=== PATIENT | male | born 1990 ===

== ENCOUNTER 2023-11-17 21:01 | Emergency (ER) | payer OTHER ==
[~2023-11-17] VITALS: Ht 182.9 cm; Wt 102.1 kg
[2023-11-17 21:10] VITALS: BP 167/97
[2023-11-17] MEDS ORDERED: Polymyxin B /Trimethoprim Opth Soln 10 ML LEFTEYE ONE (22:00)
== END 2023-11-17 22:10 | disposition home or self-care (01) ==
LOC: ER 21:01
DX: H10.9 Unspecified conjunctivitis (principal)
CPT/HCPCS: 99282; A9270